=== PATIENT | male | born 1970 | race Caucasian/White ===

== ENCOUNTER 2020-09-23 01:19 | Inpatient (IN) | payer OTHER ==
[~2020-09-23] VITALS: Ht 177.8 cm; Wt 102.1 kg
[~2020-09-23 01:19] MED LIST: ALTACE10 MG PO; BACLOFEN20 MG PO; DURICEF 500 MG CAPSULE PO; GABAPENTIN800 MG PO; TRAM1TAB98 PO; VICODIN ES 7.51 EACH PO
--- NOTE | 2020-09-23 01:44 | NUR ---
PTE ALERTA Y ORIENTADO POR JANINE ESFERAS CON BUEN PATRON RESPIRATORIO ACOMPANADO DE FAMILIAR, REFIERE QUE EN LA NOCHE DE HOY SE DESMAYO Y PERDIO CONOCIMIENTO EN RASHID HOGAR. REFIERE CAERSE EN RASHID SERGE. SE REALIZA EKG Y SE MUESTRA A . SE UBICA EN AREA DE OBSERVACION.
--- NOTE | 2020-09-23 02:25 | NUR ---
PACIENTE ALERTA Y ORIENTADO EN OMAR JANINE ESFERAS. MS. LORA ORIENTA A PACIENTE SOBRE PROCEDIMIENTO Y TX, REFIERE ENTENDER. EXTRAE MUESTRAS DE LABORATORIO CON MEDIDAS ASEPTICAS Y ADMINISTRA MEDICAMENTTOS ROBYN ORDE MEDICA.
--- NOTE | 2020-09-23 07:15 | NUR ---
SE RECIBE PACIENTE ALERTA Y ORIENTADO EN TIEMPO LUGRA Y PERSONA. CON VENOPUNCION PATENTE TIA DE ERITEMA Y EDEMA, AL MOMENTO EN S/L. SE MANTIENE EN OBSERVACION POR CAMBIOS EN RASHID CONDICION. PENDIENTE CONSULTA CON DR. Kendra GARAY.
== END 2020-09-24 17:41 | disposition home or self-care (01) | DRG 312 ==
LOC: ER 01:19 → MEDI 09:48
PROVIDERS: ADMIT Internal Medicine; ATTEND Internal Medicine
PROC: B345ZZZ Ultrasonography of Bilateral Common Carotid Arteries (ICD-10-PCS; principal; 2020-09-23)
PROC: B348ZZZ Ultrasonography of Bilateral Internal Carotid Arteries (ICD-10-PCS; 2020-09-23)
PROC: B24BZZZ Ultrasonography of Heart with Aorta (ICD-10-PCS; 2020-09-23)
PROC: BW28ZZZ Computerized Tomography (CT Scan) of Head (ICD-10-PCS; 2020-09-23)
DX: R55 Syncope and collapse (principal); I10 Essential (primary) hypertension; Z20.822 Contact with and (suspected) exposure to COVID-19; S09.8XXA Other specified injuries of head, initial encounter; W18.39XA Other fall on same level, initial encounter

== ENCOUNTER 2023-04-14 23:28 | Emergency (ER) | payer OTHER ==
[~2023-04-14] VITALS: Ht 177.8 cm; Wt 98.0 kg
[2023-04-15] MEDS ORDERED: DOLOGESIC-DF 51 EACH PO (03:16)
[2023-04-15] MEDS ORDERED: METAXALONE800 MG PO (03:16)
== END 2023-04-15 03:20 ==
LOC: ER 23:28
DX: M54.2 Cervicalgia (principal); M62.838 Other muscle spasm; Z88.6 Allergy status to analgesic agent; I10 Essential (primary) hypertension
CPT/HCPCS: 72040; 96372; 99284; J3301; J3490